=== PATIENT | male | born 1975 | race Caucasian/White ===

== ENCOUNTER 2020-01-31 21:11 | Emergency (ER) | payer OTHER ==
[~2020-01-31] VITALS: Ht 193 cm; Wt 85.7 kg
[~2020-01-31 21:11] MED LIST: CELEXA20 MG PO; IBUPROFEN 800800 M1 PO; TEGRETOL200 MG PO; VENTOLIN HFA 1818 GM INH
[2020-01-31] MEDS ORDERED: MELOXICAM15 MG PO (22:45)
[2020-01-31] MEDS ORDERED: MEDROLDOSEPACK PO (22:45)
[2020-01-31 22:57] VITALS: BP 120/74
== END 2020-01-31 22:58 | disposition home or self-care (01) ==
LOC: M.ERS 21:11
DX: M77.8 Other enthesopathies, not elsewhere classified (principal); F17.210 Nicotine dependence, cigarettes, uncomplicated